=== PATIENT | male | born 1945 | race Caucasian/White ===

== ENCOUNTER 2017-05-14 05:37 | Inpatient (IN) | payer OTHER, MEDICARE ==
[2017-05-01 14:42] LABS: % IMMATURE GRANULYOCYTES 0.3 % (0.0-1.1); ABSOLUTE IMMATURE GRANULOCYTES 0.02 10^3/uL (0.00-0.10); ADD DIFF? NO; ADD MORPH? NO; ADD SCAN? NO; ATYPICAL LYMPHOCYTE FLAG 10 (0-99); FRAGMENT RBC FLAG 0 (0-99); HEMATOCRIT 45.7 % (40.0-51.0); LEFT SHIFT FLG 0 (0-99); LIPEMIA HEMOLYSIS FLAG 90 (0-99); MEAN CELL VOLUME 91.4 fL (81.5-99.8); MEAN PLATELET VOLUME 9.6 fL (8.7-11.7); PLATELET CLUMPS FLAG 0 (0-99); PLATELET COUNT 251 10^3/uL (150-400); RED CELL DISTRIBUTION WIDTH 12.6 % (11.5-15.2)
--- NOTE | 2017-05-06 15:17 | GHP ---
[f rep st] PREOP HISTORY AND PHYSICAL DATE OF ADMISSION: 05/14/2017 HISTORY OF PRESENT ILLNESS: The patient is a 71-year-old man admitted for a left total knee arthropl asty. He has had intermittent problems with his left knee for 30 years. He has had pain and swellin g. He has had to give up running. He has never had surgery on the knee. His pain and swelling have been worse recently. His pain is all on the medial side of the knee. He occasionally uses ibuprofe n. He was tried on viscosupplementation injections in December of this year and that made his pain and sw elling worse. He is admitted for a left total knee arthroplasty. PAST MEDICAL HISTORY: Overall he is in excellent general health. He has had a previous hernia repai r. He has hardware in his right wrist. No history of heart disease, DVT, hepatitis, or sleep apnea. He does not take any prescription medications. DRUG ALLERGIES: None. Metal allergy: None. Latex allergy: None. SOCIAL HISTORY: The patient is . He is a retired property accountant. He stopped smoking cigarettes 50 years ago. He occasionally drinks alcohol. He does not have a primary care doctor. FAMILY HISTORY: Positive for arthritis. PHYSICAL EXAMINATION: GENERAL: He is a thin, healthy-appearing man. EYES: The conjunctivae and sc lerae are clear. Pupils are round and reactive. MOUTH: Good oral hygiene. No loose teeth. CHEST: Clear. HEART: Regular rhythm, no murmurs. EXTREMITIES: Pertinent findings limited to his left k nee. He has a small effusion. He lacks 7 or 8 degrees of full extension and flexes to 110 degrees. He is tender along the medial joint line. Mild pseudolaxity of his medial collateral ligament. IMAGING: His films show advanced medial compartment degenerative arthritis. He is [id number]-st-[id number] in t he medial compartment. Varus alignment is present. PLAN: He will undergo a left total knee arthroplasty. The surgery has been described to him, includ ing the risks, complications, expectations, and recovery time. I have stressed the importance of pos toperative physical therapy. I have advised him that a small percentage of people do not get a satis factory result with a total knee replacement. All his questions have been answered, and he consents to surgery. /[id number]/MODL
[~2017-05-14 05:37] MED LIST: POVIDONE-IODINE 20 ML in SODIUM CL IRRIG SOLUTION 500 ML IRR ONE
[2017-05-14] MEDS ORDERED: FAMOTIDINE 20 MG TAB PO ONE (05:48)
[2017-05-14] MEDS ORDERED: ACETAMINOPHEN 325 MG TAB PO ONE (05:48)
[2017-05-14] MEDS ORDERED: ceFAZolin 2 GM/DEXTROSE 100 ML IV ONE (05:48)
[2017-05-14] MEDS ORDERED: DEXAMETHASONE 4 MG/ML VIAL IVP ONE (05:48)
[2017-05-14] MEDS ORDERED: LR 1,000 ML IV ONE (05:49)
[2017-05-14] MEDS ORDERED: LIDOCAINE 1% 2 ML INJ ID PRN (05:49)
[2017-05-14] MEDS ORDERED: TRANEXAMIC ACID 650 MG in NS 100 ML IV ONE (06:00)
[2017-05-14] MEDS ORDERED: ROPIVACAINE 0.2% 80 MG, EPINEPHrine 0.2 MG, KETOROLAC TROMETHAMINE 30 MG in BAG 0 ML IU ONE (06:00)
[2017-05-14] MEDS ORDERED: POVIDONE-IODINE 20 ML in SODIUM CL IRRIG SOLUTION 500 ML IRR ONE (06:00)
[2017-05-14] MEDS ORDERED: MIDAZOLAM 2 MG/2 ML VIAL IVP ONE (06:48)
--- NOTE | 2017-05-14 06:48 | PDANEPAE ---
ANE History of Present Illness here for L tka ANE Past Medical History - Cardiovascular History Hx Hypertension: No Hx Arrhythmias: No Hx Chest Pain: No Hx Coronary Artery / Peripheral Vascular Disease: No Hx CHF / Valvular Disease: No Hx Palpitations: No - Pulmonary History Hx COPD: No Hx Asthma/Reactive Airway Disease: No Hx Recent Upper Respiratory Infection: No Hx Oxygen in Use at Home: No Hx Sleep Apnea: No Sleep Apnea Screening Result - Last Documented: Negative - Neurologic History Hx Cerebrovascular Accident: No Hx Seizures: No Hx Dementia: No - Endocrine History Hx Diabetes: No - Renal History Hx Renal Disorders: No - Liver History Hx Hepatic Disorders: No - Neurological & Psychiatric Hx Hx Neurological and Psychiatric Disorders: No - Cancer History Hx Cancer: No - Congenital Disorder History Hx Congenital Disorders: No - GI History Hx Gastrointestinal Disorders: No - Other Health History Other Health History: wears glasses. rashes occassionally - Chronic Pain History Chronic Pain: Yes (bilateral knees and occ ankles) - Surgical History Prior Surgeries: eye surgery x 3 this year- cataract, vitrectomy x2. hernia repair. broken arm repair 1992 ANE Review of Systems Review of systems is: negative Review of Systems: - Exercise capacity Exercise capacity: >=4 METS METS (RN): 4 METS ANE Patient History - Allergies Allergies/Adverse Reactions: No Known Allergies Allergy (Verified 04/22/17 11:38) - Home Medications Home medications: home medication list seen and reviewed Home Medications: Acetaminophen [Tylenol 325mg (*)] 325 mg PO DAILY PRN 04/15/17 [Last Taken 05/04] Acetaminophen/ASA/Caffeine [Excedrin Tablet (*)] 1 each PO DAILY PRN 04/15/17 [ Last Taken 05/04/17] Herbals/Supplements -Info Only 1 ea PO DAILY 04/15/17 [Last Taken 05/04/17] Ibuprofen [Motrin (*)] 200 mg PO DAILY PRN 04/15/17 [Last Taken 05/04/17] - NPO status NPO Status: no food or drink >8 hours NPO Since - Liquids (Date): 05/13/17 NPO Since - Liquids (Time): 20:00 NPO Since - Solids (Date): 05/13/17 NPO Since - Solids (Time): 20:00 - Anes Hx Anes Hx: no prior problems - Smoking Hx Smoking Status: Former smoker - Family Anes Hx Family Hx Anesthesia Complications: none ANE Labs/Vital Signs - Labs Result Diagrams: 05/01/17 14:32 - Vital Signs Blood Pressure: 155/82 Heart Rate: 62 Respiratory Rate: 20 O2 Sat (%): 95 Height: 167.64 cm Weight: 65.771 kg ANE Physical Exam - Airway Neck exam: FROM Mallampati Score: Class 1 - Pulmonary Pulmonary: no respiratory distress - Cardiovascular Cardiovascular: regular rate and rhythym - ASA Status ASA Status: I ANE Anesthesia Plan Anesthesia Plan: spinal Regional Anesthesia: single shot NB, adductor canal FNB
[2017-05-14] MEDS ORDERED: ceFAZolin 1 GM/5 ML SYR ONE (06:53)
[2017-05-14] MEDS ORDERED: VANCOMYCIN 1 GM VIAL ONE (06:54)
--- NOTE | 2017-05-14 07:07 | PDHPUP ---
History & Physical Update H&P update statement: This history and physical update is based on an assessment of the patient which was completed after admission or registration (within 24 hours), but prior to the surgery/procedure. H&P update: H&P reviewed & patient examined, no change in patient's condition since H&P completed
[2017-05-14] MEDS ORDERED: fentaNYL 100 MCG/2 ML INJ ONE ×2 (07:10→07:22)
[2017-05-14] MEDS ORDERED: PROPOFOL/EMULSION 500 MG/50 ML BOTTLE IV ONE (07:22)
[2017-05-14] MEDS ORDERED: NALOXONE HCL 0.4 MG/ML INJ IVP PRN (07:51)
[2017-05-14] MEDS ORDERED: HYDROmorphONE/DILAUDID 1 MG/ML INJ IVP PRN (07:51)
[2017-05-14] MEDS ORDERED: fentaNYL 100 MCG/2 ML INJ IVP PRN (07:51)
[2017-05-14] MEDS ORDERED: ALBUTEROL 3 ML DEYVIAL IH PRN (07:51)
[2017-05-14] MEDS ORDERED: PROMETHAZINE HCL 25 MG/ML INJ IVP PRN ×2 (07:51→08:55)
[2017-05-14] MEDS ORDERED: ONDANSETRON 4 MG/2 ML VIAL IVP PRN ×2 (07:51→08:55)
[2017-05-14] MEDS ORDERED: PROPOFOL 200 MG/20 ML VIAL ONE ×2 (08:04→08:43)
--- NOTE | 2017-05-14 08:54 | POSTOPPROG ---
Post Op Note Date of Operation: 05/14/17 Surgeon: Ean Ellis Supervisor Plating [employer] Point Assembly: Esteban Vasquez/Zahra Mallory Anesthesiologist: Dr. Matthew Terry Anesthesia: IV Sedation, Spinal Post-op Diagnosis: Left knee severe degenerative arthritis. Procedure: Left total knee arthroplasty. Inf/Abcess present in the surg proc area at time of surgery?: No EBL: 50-100 (Adductor canal block in PACU)
[2017-05-14] MEDS ORDERED: TAPENTADOL HCL 50 MG TAB PO PRN (08:55)
[2017-05-14] MEDS ORDERED: CYCLOBENZAPRINE 10 MG TAB PO PRN (08:55)
[2017-05-14] MEDS ORDERED: diphenhydrAMINE 25 MG CAP PO PRN (08:55)
[2017-05-14] MEDS ORDERED: KETOROLAC 30 MG/1 ML SDV IVP PRN (08:55)
[2017-05-14] MEDS ORDERED: LACTULOSE 20 GM/30 ML UDCUP PO PRN (08:55)
[2017-05-14] MEDS ORDERED: ONDANSETRON DISINTEGRATING 4 MG TAB PO PRN (08:55)
[2017-05-14] MEDS ORDERED: MAGNESIUM HYDROXIDE 30 ML UDCUP PO PRN (08:55)
[2017-05-14] MEDS ORDERED: TEMAZEPAM 15 MG CAP PO PRN (08:55)
[2017-05-14] MEDS ORDERED: METOCLOPRAMIDE 10 MG/2 ML VIAL IVP PRN (08:55)
[2017-05-14] MEDS ORDERED: BISACODYL 10 MG SUPP PR PRN (08:55)
[2017-05-14] MEDS ORDERED: POLYETHYLENE GLYCOL 3350 17 GM PKT PO PRN (08:55)
[2017-05-14] MEDS ORDERED: PROMETHAZINE HCL 25 MG SUPPR PR PRN (08:55)
[2017-05-14] MEDS ORDERED: DIPHENOXYLATE/ATROPINE LOMOTIL 1 TAB PO PRN (08:55)
[2017-05-14] MEDS ORDERED: LR 1,000 ML IV SCH (09:00)
--- NOTE | 2017-05-14 09:41 | GOP ---
[f rep st] OPERATIVE REPORT DATE OF OPERATION: 05/14/2017 SURGEON: Ean Ellis MD AUTO SERVICE WRITER: Esteban Vasquez and Zahra Mallory. ANESTHESIA: Combination of Marcaine, spinal, IV sedation, and adductor canal block by Dr. Matthew thomas. PREOPERATIVE DIAGNOSIS: Left knee severe degenerative arthritis with varus deformity. POSTOPERATIVE DIAGNOSIS: Left knee severe degenerative arthritis with varus deformity. PROCEDURE PERFORMED: 05/14/2017, a left total knee arthroplasty, cemented, posterior stabilized, [facility] th and Nephew Eyal 2. FINDINGS: DESCRIPTION OF PROCEDURE: The patient was given 2 g of preoperative IV Ancef within 60 minutes of davies rgery. He also received IV tranexamic acid at a dose of 10 mg/kg. He was placed on the operating ro om table and given spinal anesthesia with Marcaine by Dr. Terry. He was then placed supine and give n IV sedation. A Rose catheter was not used. He wore a MOLLY stocking and SCD on the nonoperative le g. His left lower extremity was prepped with ChloraPrep from the upper thigh tourniquet to the tips of the toes. It was draped free using sterile sheets, stockinette, and Ioban plastic adhesive drape. The lower leg was wrapped with compressive Coban. The leg was exsanguinated with elevation and a 6 -inch compressive wrap, and the pneumatic tourniquet was elevated to 250 mmHg. The World Health Organization time-out was performed to verify the correct patient identity and the c orrect surgical side and site. The Greer time-out was also performed. The [employer] Generation Systems[employer] leg holding device was sterilely attached to the operating room table and used throughout the procedure to help position the knee. A straight midline incision was made centered on the patell a. Subcutaneous tissues were sharply divided, and hemostasis was obtained using electrocautery. A medial subcutaneous flap was developed and the capsule and synovium were opened in a medial parapat ellar fashion. Extensive degenerative changes were present, particularly in the medial compartment a nd the patellofemoral joint. The medial capsule and periosteum were elevated off the rim of the medi al tibial plateau all the way around to the posteromedial corner. The medial collateral ligament was released enough to balance the medial side of the knee. In order to improve exposure, the patella was prepared first. The original thickness of the patella was measured. Peripheral osteophytes were removed. I cut a flat surface on the back of the patella. The patella was sized for a 38 mm resurfacing component. I removed enough bone from the patella davies ch that the remaining bone plus the thickness of the patellar component recreated the original thickn ess of the patella. The patellar composite thickness was 22 mm. The intramedullary alignment guide system was used to set up the distal femoral cut. The distal femu r was cut in 5 degrees of valgus. Because of a slight preoperative flexion contracture, I made a +2 mm cut on the distal femur. The sizing jig was used to determine proper femoral sizing. I shifted t he jig anteriorly 1 mm in order to accommodate a size 6 femoral component without notching the anteri or cortex. The 5-N-1 cutting block was applied, and the anterior and posterior condylar cuts and shira mfer cuts were made. The final jig was used to remove the central portion of the distal femur to acc ommodate the posterior stabilized femoral component. I was careful to determine proper rotation by r eferencing off Whitesides line. Each cut was checked for accuracy before and after it was made. The femur was sized for a size 6 posterior stabilized component. The trial component was tapped securel y in place and was an excellent fit. Next, the tibia was prepared. The proximal tibial cut was made using the extramedullary alignment gu solomon system. The cut was made in a few degrees of posterior slope. I was careful to achieve proper v arus-valgus alignment and proper rotation. The posterior compartment was cleared of meniscal remnant s. Osteophytes were removed from the back of the femoral condyles. I checked the flexion and extens ion gaps, and they were equal, balanced and rectangular. The tibia was sized for a size 5 component. With the trial components in place, I selected a 10 mm p olyethylene posterior stabilized tibial insert. The knee came to full extension and flexed to 130 de grees. There was no overstuffing in flexion. His collateral ligaments were stable and balanced in 9 0 degrees of flexion and full extension. The trial patellar button was applied, and tracking was joseph cked. Tracking was excellent without any digital pressure. 40 mL of the joint anesthetic cocktail were injected into the posterior capsule, the vikki-articular s tructures, the quadriceps muscle and tendon areas, and the subcutaneous tissues along the skin edges. A second dose of IV tranexamic acid was given at a dose of 10 mg/kg. The surfaces were prepared for cementing. They were cleaned with the pulsating lavage irrigation and thoroughly dried. The CarboJet device was used to blow dry the cancellous surfaces. A double batch of high viscosity methylmethacrylate cement with 2 g of powdered vancomycin added was mixed. While it was still in a semi-liquid state, all [address] components were cemented in place. Excess cement was giorgio suzanna before it hardened. The 10 mm trial tibial insert was re-tried and was the proper thickness. The actual component was in serted and locked into place. The knee was thoroughly irrigated one final time with a dilute Betadin e solution. The tourniquet was deflated and the total tourniquet time was 43 minutes. The vastus medialis portion of the extensor mechanism was repaired with several interrupted figure-of -eight #2 FiberWire sutures. The capsule and synovium were closed first with multiple interrupted fi [id number] 0 PDS sutures, followed by a running #2 barbed Ethicon STRATAFIX PDO suture. Subcutane ous tissues were closed with a running 0 barbed Ethicon STRATAFIX Monoderm suture. The skin was clos ed with a running 3-0 barbed Ethicon STRATAFIX Monoderm subcuticular suture. The skin was sealed wit h half-inch Steri-Strips. The wound was covered with Xeroform gauze, a 9 cm x 25 cm Aquacel AG steri le surgical dressing. A long-leg MOLLY stocking and SCD were applied followed by the cooling device. He wore a stocking and SCD on the opposite leg during the procedure. I used a size 6 cemented Fu and Nephew Oxinium posterior stabilized femoral component, a size 5 ce mented tibial base plate, a 10 mm posterior stabilized tibial insert, and a 38 mm cemented round all- polyethylene resurfacing patellar component. The estimated blood loss following deflation of the tourniquet was about 100 mL. The sponge and needle count was correct on 2 occasions. He was awakened from anesthesia, [facility] and taken to PACU in satisfactory condition. There were no recognized intraoperative complications. In the PACU, for additional postoperative pain control, Dr. Matthew Terry performed an adductor canal block. Esteban Vasquez and Zahra Mallory acted as surgical assistants. Their assistance was a medical necessi ty for safe completion of the procedure. The patient does not have a primary care doctor. SURGEON: Ean lElis MD. /[id number]/MODL
[2017-05-14] MEDS: SENNOSIDES/DOCUSATE SODIUM TAB PO SCH ×2 (12:33→20:51)
[2017-05-14] MEDS: FERROUS SULFATE 140 MG TAB.ER PO SCH (12:33)
[2017-05-14] MEDS: ACETAMINOPHEN 325 MG TAB PO SCH ×3 (13:36→23:33)
[2017-05-14] MEDS: TRANEXAMIC ACID 650 MG TAB PO SCH ×2 (13:37→20:52)
[2017-05-14] MEDS: ceFAZolin 2 GM/DEXTROSE 100 ML IV SCH ×2 (14:50→23:33)
--- NOTE | 2017-05-14 17:45 | POSTANESTH ---
Post Anesthetic Evaluation Cardiovascular Status: Normal, Stable Respiratory Status: Normal, Stable Level of Consciousness/Mental Status: Can Participate in Eval Pain Control: Adequate, Prn Tx Ordered Nausea/Vomiting Control: Adequate, Prn Tx Ordered Complications Possibly Related to Anesthesia: None Noted
[2017-05-14] MEDS: ASPIRIN 325 MG TAB PO SCH (20:50)
[2017-05-14] MEDS: FAMOTIDINE 20 MG TAB PO SCH (20:50)
[2017-05-14] MEDS: traMADol 50 MG TAB PO PRN (22:09)
[2017-05-15 04:49] LABS: HEMATOCRIT 38.8 % (40.0-51.0); HEMOGLOBIN 13.9 g/dL (13.7-17.5)
[2017-05-15] MEDS: ACETAMINOPHEN 325 MG TAB PO SCH ×2 (05:25→11:10)
[2017-05-15] MEDS: TRANEXAMIC ACID 650 MG TAB PO SCH (05:26)
[2017-05-15 08:22] VITALS: RESP 16
[2017-05-15] MEDS: traMADol 50 MG TAB PO PRN (08:43)
[2017-05-15] MEDS: FERROUS SULFATE 140 MG TAB.ER PO SCH (08:44)
[2017-05-15] MEDS: SENNOSIDES/DOCUSATE SODIUM TAB PO SCH (08:44)
[2017-05-15] MEDS: FAMOTIDINE 20 MG TAB PO SCH (08:44)
[2017-05-15] MEDS: ASPIRIN 325 MG TAB PO SCH (08:57)
[2017-05-15] MEDS ORDERED: PNEUMOC 13-VAL CONJ-DIP CRM/PF 0.5 ML SYR IM ONE (08:58)
[2017-05-15] MEDS: oxyCODONE IR 5 MG TAB PO PRN ×2 (09:35→13:44)
--- NOTE | 2017-05-15 10:36 | SOAPPROG ---
SOAP Progress Note Assessment/Plan: Assessment: Afebrile. Moderate pain. He has been up and walking in the room. Yesterday he developed urinary retention. He had to be catheterized twice. He now has indwelling catheter. H&H are adequate. His postop films look excellent. Plan: Continue physical therapy for ambulation and stairs. I am going to start him on Flomax. He will probably need to go home with his Rose catheter. 05/15/17 10:35 Objective: Vital Signs Temp Pulse Resp BP Pulse Ox 36.2 C 76 16 131/78 H 97 05/15/17 08:00 05/15/17 08:00 05/15/17 08:00 05/15/17 08:00 05/15/17 08:00 Laboratory Results 05/15/17 04:11 05/14/17 05/15/17 05/16/17 05:59 05:59 05:59 Intake Total 2750 Output Total 3175 Balance -425 ICD10 Worksheet Patient Problems: Problems Problem Status Onset Osteoarthritis of left knee Acute
[2017-05-15] MEDS ORDERED: TAMSULOSIN HCL 0.4 MG CAP PO SCH (10:45)
[2017-05-15 11:17] VITALS: BP 122/71; PULSE 74; TEMP 98; O2SAT 94
--- NOTE | 2017-05-15 11:45 | ASMTCMCOM ---
CM Note CM Note Notes: PT recommending out pt PT. Met w/pt and who will be at home w/pt; they are planning on f/u w/out pt therapy. Pt may dc home w/velazquez cath and will f/u w/ urology. D/W RN who felt that pt would be able to provide self care for cath. No other dc needs. Date Signed: 05/15/2017 11:44 AM Electronically Signed By:Cassandra Melara RN
--- NOTE | 2017-05-15 14:04 | SOAPPROG ---
SOAP Progress Note Assessment/Plan: Assessment: Afebrile. Moderate pain. He has been up and walking in the room. Yesterday he developed urinary retention. He had to be catheterized twice. He now has indwelling catheter. H&H are adequate. His postop films look excellent. Plan: Continue physical therapy for ambulation and stairs. I am going to start him on Flomax. He will probably need to go home with his Velazquez catheter. 05/15/17 10:35 05/15/17 14:[address] Santos. He recommended leaving velazquez in place. He will see pt on Saturday for eval and possibly catheter removal. OK for DC. Objective: Vital Signs Temp Pulse Resp BP Pulse Ox 36.7 C 74 16 122/71 H 94 05/15/17 11:16 05/15/17 11:16 05/15/17 11:16 05/15/17 11:16 05/15/17 11:16 Laboratory Results 05/15/17 04:11 05/14/17 05/15/17 05/16/17 05:59 05:59 05:59 Intake Total 2750 500 Output Total 3175 400 Balance -425 100 ICD10 Worksheet Patient Problems: Problems Problem Status Onset Osteoarthritis of left knee Acute
--- NOTE | 2017-05-15 14:58 | GDS ---
[f rep st] DISCHARGE SUMMARY ADMISSION DIAGNOSIS: Left knee severe degenerative arthritis. DISCHARGE DIAGNOSIS: Left knee severe degenerative arthritis. OPERATIONS PERFORMED: On 05/14/2017, a left total knee arthroplasty. POSTOPERATIVE COMPLICATIONS: Urinary retention. CONDITION ON DISCHARGE: Improved. DESCRIPTION OF HOSPITAL COURSE: The patient was admitted to the hospital on the morning of surgery. His admission CBC was normal. The same day, under a combination of Marcaine, spinal, IV sedation, a nd adductor canal block, he underwent a left total knee arthroplasty. Postoperatively, he was treate d with multimodal DVT prophylaxis, including aspirin and early mobilization. On the first postoperat henry day, he required urinary catheterization twice. The 2nd time, the catheter was left in place. Nichole walker was seen by Physical Therapy and made satisfactory progress with ambulation, stairs, and knee range of motion. I consulted with Dr. Cl Santos. He recommended sending the patient home with a catheter in place. DISPOSITION: The patient was discharged to his home. He will go to outpatient physical therapy. Co ntinue aspirin 325 mg p.o. daily for 21 days. He has prescriptions for oxycodone and tramadol for pa in control. Use MOLLY stockings for 1 week. He may progress to full weightbearing on the left as tole rated. He will make an appointment to see Dr. Santos on Saturday, May 20. I will see him back i n the office on June 03. He will go to outpatient physical therapy. If there are any problems, he is to call me at the office. He does not have a primary care doctor. /[id number]/MODL
--- NOTE | 2017-05-15 16:37 | ASDISCHSUM ---
Discharge Information Plan Status:Home with No Needs Medically Cleared to Leave: Discharge Date:05/15/2017 03:56 PM CM D/C Disposition:Home, Routine, Self-Care ADT D/C Disposition:Home, Routine, Self-Care Projected Discharge Date:05/15/2017 03:56 PM Transportation at D/C: Discharge Delay Reason: Follow-Up Date:05/15/2017 03:56 PM Discharge Slot: Final Diagnosis: Placement Information Patient Contact Information Contact Name:SAMUEL Relationship: Address:[address] Work Phone: Sylvester:DEBBIE Bui Phone: [facility]/Zip Code:[place] [address] Email: Financial Information Financial Class: Primary Plan Desc:MEDICARE INPATIENT Primary Plan Number:[id number] Secondary Plan Desc:[employer]/M[employer] SUPPLEMENT Secondary Plan Number:[id number] Assessment Information [facility] CM Progress Note CM Note CM Note Notes: PT recommending out pt PT. Met w/pt and who will be at home w/pt; they are planning on f/u w/out pt therapy. Pt may dc home w/velazquez cath and will f/u w/ urology. D/W RN who felt that pt would be able to provide self care for cath. No other dc needs. Date Signed: 05/15/2017 11:44 AM Electronically Signed By:Cassandra Melara RN Intervention Information
== END 2017-05-15 15:56 | disposition home or self-care (01) | DRG 470 ==
LOC: F3N 05:37
PROVIDERS: ADMIT Orthopaedic Surgery; ATTEND Orthopaedic Surgery
PROC: 0SRD0J9 Replacement of Left Knee Joint with Synthetic Substitute, Cemented, Open Approach (ICD-10-PCS; principal; 2017-05-14 07:15)
PROC: 0T9B70Z Drainage of Bladder with Drainage Device, Via Natural or Artificial Opening (ICD-10-PCS; principal; 2017-05-14 07:15)
DX: M17.12 Unilateral primary osteoarthritis, left knee (principal); R33.9 Retention of urine, unspecified
CPT/HCPCS: 97110-GP; 97116-GP; 97161-GP; 97165-GO; C1713; G0009; G8978-GP-CI; G8979-GP-CI; G8980-GP-CI; G8987-GO-CI; G8988-GO-CI; G8989-GO-CI; J0171; J0690; J1100; J1885; J2250; J2704; J2795; J3010; J3370